=== PATIENT | male | born 1995 | race Caucasian/White ===

== ENCOUNTER 2023-04-07 18:26 | Emergency (ER) | payer MEDICAID ==
[~2023-04-07] VITALS: Ht 165.1 cm; Wt 59.0 kg
[2023-04-07 19:49] LABS: APPEARANCE,URINE Clear (CLEAR); BILIRUBIN,URINE Negative (NEGATIVE); BLOOD, URINE Negative Ery/uL (NEGATIVE); COLOR,URINE YELLOW (YELLOW); KETONES,URINE Trace mg/dL (NEGATIVE); LEUKOCYTE ESTERASE ,URINE Negative (NEGATIVE); NITRITE, URINE Negative (NEGATIVE); PROTEIN,URINE Negative (NEGATIVE); UGLUCOSE Negative (NEGATIVE); UROBILINOGEN,URINE 0.2 EU/dL (0.2)
[2023-04-07 20:39] VITALS: BP 119/73; TEMP 98.5; O2SAT 99
== END 2023-04-07 20:39 | disposition home or self-care (01) ==
LOC: ER 18:30
DX: N50.3 Cyst of epididymis (principal)
CPT/HCPCS: 76870-TC